=== PATIENT | male | born 1965 | race Caucasian/White ===

== ENCOUNTER 2018-05-16 13:32 | Inpatient (IN) | payer MEDICARE ==
[~2018-05-16] VITALS: Ht 83.8 cm; Wt 80.2 kg
[2018-05-16] VITALS (180 sets, daily range): BP systolic 103; BP diastolic 73; PULSE 72–77; TEMP 97.9–99.3; O2SAT 80–100
[2018-05-16] MEDS ORDERED: LINZESS145CAP PO (13:59)
[2018-05-16] MEDS ORDERED: BACTRIM DS 8001 TAB PO (13:59)
[2018-05-16 14:59] LABS: COLLECTION METHOD CLEAN CATCH
[2018-05-16 15:08] LABS: PH 7 (5-8); SQUAMOUS EPITHELIAL None Seen /hpf; URINE APPEARANCE Turbid; URINE BACTERIA Occasional /hpf; URINE BILIRUBIN Negative (NEGATIVE); URINE BLOOD 2+ (NEGATIVE); URINE GLUCOSE Negative (NEGATIVE); URINE KETONE Negative (NEGATIVE); URINE LEUKOCYTE ESTERASE 2+ (NEGATIVE); URINE NITRATE Negative (NEGATIVE); URINE PROTEIN(semi-quant) 3+ (NEGATIVE); URINE RBC 0-2 /hpf; URINE UROBILINOGEN Negative (NEGATIVE)
[2018-05-16 15:17] LABS: BASO # 0.1 (0.0-0.2); BASO % 0.6 % (0.0-2.0); EOS # 0.3 (0.0-0.7); EOS % 2.9 % (0-4.0); GRAN # 7.7 (1.4-6.5); GRAN % 80.2 % (42.2-75.2); HEMOGLOBIN 16.7 g/dl (13.5-18.0); LYMPH # 0.8 (1.2-3.4); LYMPH % 7.8 % (20.0-51.0); MEAN CELL VOLUME 93 fl (80.0-100.0); MEAN CORPUSCULAR HEMOGLOBIN 27 pg (27.0-31.0); MEAN CORPUSCULAR HGB CONC 29 g/dl (33.0-37.0); MEAN PLATELET VOLUME 10.8 fl (7.4-10.4); MONO # 0.6 (0.1-0.6); MONO % 6.6 % (1.7-9.3); PLATELET COUNT 226 K/mm3 (130-400); RED BLOOD COUNT 6.12 M/mm3 (4.20-5.60); REDCELL DISTRIBUTION WIDTH-CV 19.4 % (11.5-14.5)
[2018-05-16 15:29] LABS: ALBUMIN 3.8 gm/dL (3.5-5.0); BILIRUBIN,TOTAL 0.3 mg/dL (0.0-1.0); CALCIUM 8.4 mg/dL (8.4-10.2); CREATININE, serum 2.06 mg/dL (0.66-1.25); POTASSIUM 4.3 mmol/L (3.4-5.0); TOTAL PROTEIN 8.7 gm/dL (6.4-8.2)
[2018-05-16 17:03] LABS: INR 1.1 (0.8-3.0); PROTHROMBIN TIME 12.9 SECONDS (9.7-12.8)
[2018-05-16 17:07] LABS: TROPONIN-I 0.016 ng/mL (0.000-0.034)
--- NOTE | 2018-05-16 17:40 | NUR ---
Report received by phone from TANNER Morales.
--- NOTE | 2018-05-16 18:50 | NUR ---
Patient arrives to ICU, transported by stretcher and accompanied by TANNER Morales. RT present. Patient is intubated and receiving propofol for sedation. Patient comes with propofol running at 10 mcg/kg/min. Patient transferred from stretcher to bed. Patient is awake and able to answer questions by nodding or shaking head. SHAHRAM Billy, at bedside. Patient wounds on backside reviewed. Will continue to monitor.
--- NOTE | 2018-05-16 19:29 | NUR ---
Bedside report given to TANNER Muñoz.
--- NOTE | 2018-05-16 20:00 | NUR ---
PT ARRIVES TO ICU 184. PT'S FATHER NOT PRESENT TO ANSWER QUESTIONS. 1915: SHIFT CHANGE, PT NOT ABLE TO BE STIMULATED TO OPEN EYES. 1920: ADJUSTED PROP GTT. 1947: TIT PROP GTT. 2010: PT OPENING EYES, CALM, ABLE TO ANSWER YES/NO QUESTIONS, AWARE OF HIS LOCATION AND SITUATION. STILL UNABLE TO OBTAIN ALL MED HX FOR ADMISSION. WHEN ASKED PT OF IN PAIN, PT NODS SIDE TO SIDE, NO.
--- NOTE | 2018-05-16 20:00 | NUR ---
PT ARRIVES TO UNIT INTUBATED. NO KNOWN PAST MEDICAL HX EXCEPT FOR WHAT WAS OBTAINED BY ED PRIOR TO INTUBATION. PT NOT RESPONDING/FOLLOWING COMMANDS AT SHIFT REPORT. PT HAS BILAT LOWER AMPUTEE. AMPUTATION ESSESNTIALLY IS AT HIPS. NO GENETALIA OR NATURAL ORIFICES. PT HAS LEFT LOWER ABD COLOSTOMY AND RIGHT LOWER ABD UROSTOMY. POSTERIOR AND INFERIOR ASPECT OF PT IS RED, AND HAS MULTIPLE OPEN WOUNDS: STAGE 1 AND 2 PRESSURE ULERS AND ABRASIONS.
--- NOTE | 2018-05-16 20:10 | NUR ---
PT OPENING EYES FOLLOWING DECREASED TITRATION OF PROPOFOL. PT FOLLOWING COMMANDS. ABLE TO NOD YES/NO TO QUESTIONS. PT DENIES PAIN. 2015: PROVIDER IN PT RM ASKING YES/NO QUESTIONS
[2018-05-16 21:02] LABS: ARTERIAL BLD GAS O2 SATURATION 98.4 % (92-100); ARTERIAL BLD GAS TCO2 CT 20.4; ARTERIAL BLOOD GAS BASE EXCESS -2.7 (-2-2); ARTERIAL BLOOD GAS HCO3 19.5 meq/L (22-26); ARTERIAL BLOOD GAS PCO2 27.8 mmHg (35-45); ARTERIAL BLOOD GAS PO2 107.9 mmHg (80-100); ARTERIAL BLOOD GAS pH 7.46 (7.35-7.45)
--- NOTE | 2018-05-16 21:09 | NUR ---
PER DR. ARZOLA AT BEDSIDE AND ABG RESULTS RR DECREASED.
[2018-05-17] VITALS (990 sets, daily range): BP systolic 96–108; BP diastolic 51–69; PULSE 66–87; TEMP 99.1–99.8; O2SAT 84–100
--- NOTE | 2018-05-17 | NUR ---
UPON FURTHER ASSESSMENT, WHEN TURNING THE PT, FOUND THE UROSTOMY BAG WAS LEAKING. UROSTOMY BAG WAS REPLACED. ADDITIONALLY, WHEN TURNING THE PT IT APPEARS THE PT HAS A CREVICE RIGHT OF MIDLINE ON THE POSTERIOR WHICH IS APPROX THREE INCHES DEEP WITH WHITE PUSS-LIKE DRAINAGE. WOUNDS WERE PACKED AND DRESSED. PT DENIES PAIN. UROSTOMY STOMA IS BEEF-RED, MOIST, APPEARANCE IS HEALTHY. WHEN CHANGING COLOSTOMY BAG, STOOL IS DRIED TO PART OF STOMA. STOMA CLEANED AND APPEARS RED AND HEALTHY. DO TO LEAKING UROSTOMY, UNKNOWN TRUE URINE OUTPUT FROM [id number].
[2018-05-17 04:55] LABS: ARTERIAL BLD GAS TCO2 CT 21.2; ARTERIAL BLOOD GAS BASE EXCESS -2.9 (-2-2); ARTERIAL BLOOD GAS HCO3 20.2 meq/L (22-26); ARTERIAL BLOOD GAS PCO2 31.1 mmHg (35-45); ARTERIAL BLOOD GAS PO2 108.5 mmHg (80-100); ARTERIAL BLOOD GAS pH 7.43 (7.35-7.45)
--- NOTE | 2018-05-17 05:00 | NUR ---
SEDATION VACATION DURING SMART TRIAL. PT CONTINUED TO BE CALM, ALERT, COOPERATIVE.
--- NOTE | 2018-05-17 05:08 | NUR ---
PT ORAL TEMP 100.2. HOSPITALIST NOTIFIED. NO ADDITIONAL ORDERS AT PRESENT TIME
--- NOTE | 2018-05-17 05:11 | NUR ---
PLACED PT ON CPAP TRIAL VT WERE NOT ABOVE 300. PLACED BACK ON ORGINAL SETTINGS RN IN ROOM AND AWARE.
[2018-05-17 05:50] LABS: HEMATOCRIT 49.2 % (42.0-52.0); HEMOGLOBIN 14.8 g/dl (13.5-18.0); MEAN CELL VOLUME 90 fl (80.0-100.0); MEAN CORPUSCULAR HEMOGLOBIN 27 pg (27.0-31.0); MEAN CORPUSCULAR HGB CONC 30 g/dl (33.0-37.0); PLATELET COUNT 195 K/mm3 (130-400); RED BLOOD COUNT 5.49 M/mm3 (4.20-5.60); REDCELL DISTRIBUTION WIDTH-CV 18.7 % (11.5-14.5)
[2018-05-17 06:01] LABS: CALCIUM 8.5 mg/dL (8.4-10.2); CREATININE, serum 2.29 mg/dL (0.66-1.25); POTASSIUM 3.7 mmol/L (3.4-5.0)
[2018-05-17 06:09] LABS: PHOSPHOROUS 1.3 mg/dL (2.5-4.5)
[2018-05-17 07:20] LABS: BAND 5 % (0-10); LYMPHOCYTE 12 % (20.0-51.0); NEUTROPHILS 81 % (42.0-75.2); PLATELET ESTIMATE NORMAL (NORMAL)
--- NOTE | 2018-05-17 07:45 | NUR ---
Dr. Boykin here, propofol gtt turned off for [facility] care trial.
--- NOTE | 2018-05-17 07:45 | NUR ---
Bedside report received from TANNER Muñoz.
--- NOTE | 2018-05-17 07:49 | NUR ---
DR. ARZOLA AT BEDSIDE AT THIS TIME. DR. ARZOLA REQUESTING DIPRIVAN TO BE STOPPED AND NEW WEANING (SMART CARE) TO BE STARTED. ETCO2 MONITOR STARTED AND PT TO BE PLACED ON AFTER NURSES FINISH TURNING AND LOOKING AT WOUNDS. TANNER URENA AWARE AND AT BEDSIDE.
--- NOTE | 2018-05-17 08:00 | NUR ---
Patient placed on smart care trial.
--- NOTE | 2018-05-17 08:00 | NUR ---
SMART CARE STARTED AT THIS TIME PER DR. ARZOLA AT BEDSIDE. PT NIF MEASURED AT THIS TIME AT A -18, PS SET AT 16. VT AT THIS TIME ARE IN 300'S WITH RR IN MID TO LOW 20'S WILL CONTINUE TO MONITOR.
--- NOTE | 2018-05-17 09:00 | NUR ---
Patient aborted smart care, placed back on CMV, propofol gtt restarted at 15 mcg/kg/min=7.2 ml/hr.
--- NOTE | 2018-05-17 10:45 | NUR ---
Unable to assess at this time due to ventilation. SW will attempt at a later time.
--- NOTE | 2018-05-17 10:50 | NUR ---
Initial visit; Patient aware of Alumni Relations Officer's presence and let her know he would like prayer and wanted Alumni Relations Officer to keep him in her prayers.
--- NOTE | 2018-05-17 11:39 | NUR ---
Dr. Mccormack to assess patient for central line placement.
--- NOTE | 2018-05-17 13:25 | NUR ---
Dr. Mccormack at bedside to place right IJ.
--- NOTE | 2018-05-17 16:48 | NUR ---
Pt's urostomy bag changed, stoma is beefy red in color. dressing now Clean, dry and intact.
--- NOTE | 2018-05-17 19:15 | NUR ---
Bedside report received from TANNER Pettit and TANNER Villafana. All lines and medications reviewed, wounds observed. Transfer of care at this time.
--- NOTE | 2018-05-17 19:22 | NUR ---
Gave bedside report to Wanda HART, all questions asnwered.
--- NOTE | 2018-05-17 19:28 | NUR ---
Pt's urostomy wafer chaged twice during this RN's shift due to leaking, beefy red stoma noted. No skin irritation noted at this time. Urine color is clear and yellow.
--- NOTE | 2018-05-17 20:00 | NUR ---
Assessment complete at this time. Patient is having loud snoring lung sounds like rhonchi especially in the upper lobes bilaterally. Patient is now producing stool; brown, semi-liquid, small amount. Patient's ostomies are both intact, both stomas are beefy red. Patient is producing small amounts of pale yellow urine. No leaks noted at this time. Patient is resting comfortably and alert. Has been trying to write notes to family member at bedside. Patient shakes his head no when asked if having pain. No other needs at this time. Will continue to monitor. Call light within reach.
--- NOTE | 2018-05-17 20:30 | NUR ---
Creatinine clearance 24 hour urine collection started at this time. Urine placed in appropriate container and on ice.
[2018-05-18] VITALS (906 sets, daily range): BP systolic 105–119; BP diastolic 61–76; PULSE 64–89; TEMP 97.9–99; O2SAT 87–100
--- NOTE | 2018-05-18 | NUR ---
Assessment complete at this time. The rhonchi in patient's lungs has decreased and now just sound coarse with sounds louder in the upper lobes and diminished in the lower. Patient continues to make small amounts of stool. Continues to follow commands. No complaints of pain. Urine collection still in progress. No leaks noted around either ostomy site. No current needs at this time. Will continue to monitor. Call light within reach.
--- NOTE | 2018-05-18 04:00 | NUR ---
Assessment complete at this time. Patient is awake and alert, watching tv. Patient's lungs sound better than they did at the beginning of the shift, but are still coarse and diminished in the bases. There is some mucus present in the urine now from the urostomy. No leaks noted in either ostomy. Patient has no complaints of pain. Will continue to monitor. Call light within reach.
[2018-05-18 05:22] LABS: ARTERIAL BLD GAS O2 SATURATION 85.1 % (92-100); ARTERIAL BLD GAS TCO2 CT 23.2; ARTERIAL BLOOD GAS BASE EXCESS -4.4 (-2-2); ARTERIAL BLOOD GAS HCO3 21.8 meq/L (22-26); ARTERIAL BLOOD GAS PCO2 44.7 mmHg (35-45); ARTERIAL BLOOD GAS pH 7.31 (7.35-7.45)
--- NOTE | 2018-05-18 05:28 | NUR ---
ABG DRAWN AND PH 7.31 AND PO2 49 ON 40%. RN NOTIFIED. SMART CARE NOT DONE.
[2018-05-18 05:32] LABS: HEMATOCRIT 43.8 % (42.0-52.0); HEMOGLOBIN 12.9 g/dl (13.5-18.0); MEAN CELL VOLUME 91 fl (80.0-100.0); MEAN CORPUSCULAR HEMOGLOBIN 27 pg (27.0-31.0); MEAN CORPUSCULAR HGB CONC 30 g/dl (33.0-37.0); MEAN PLATELET VOLUME 10.9 fl (7.4-10.4); PLATELET COUNT 154 K/mm3 (130-400); RED BLOOD COUNT 4.79 M/mm3 (4.20-5.60); REDCELL DISTRIBUTION WIDTH-CV 19.1 % (11.5-14.5)
[2018-05-18 05:34] LABS: ARTERIAL BLOOD GAS PO2 48.8 mmHg (80-100)
[2018-05-18 05:45] LABS: CALCIUM 8.3 mg/dL (8.4-10.2); CREATININE, serum 2.31 mg/dL (0.66-1.25); MAGNESIUM 1.9 mg/dL (1.6-2.3); PHOSPHOROUS 2.1 mg/dL (2.5-4.5); POTASSIUM 3.4 mmol/L (3.4-5.0)
--- NOTE | 2018-05-18 05:45 | NUR ---
Smart care will not be done this morning. Patient's ABG's look worse than the previous draw. RT to notify [facility]. Patient was taken off of sedation completely in preparation and sedation vacation performed. Patient restarted on propofol 15mcg and fentanyl 25mcg for comfort. No further needs at this time. Will continue to monitor. Call light within reach.
[2018-05-18 06:21] LABS: BAND 4 % (0-10); BASOPHIL 1 % (0-2); EOSINOPHIL 2 % (0-4); HYPOCHROMIA 3+; LYMPHOCYTE 14 % (20.0-51.0); NEUTROPHILS 73 % (42.0-75.2); PLATELET ESTIMATE NORMAL (NORMAL)
[2018-05-18 06:22] LABS: ANISOCYTOSIS 2+
--- NOTE | 2018-05-18 07:00 | NUR ---
Received bedside report from TANNER Muñoz.
--- NOTE | 2018-05-18 07:08 | NUR ---
Bedside report given to TANNER Pettit and TANNER Goetz. All lines and medications reviewed. Transfer of care at this time.
--- NOTE | 2018-05-18 09:20 | NUR ---
DR. ARZOLA AT BEDSIDE FOR ROUNDS.
[2018-05-18 09:32] LABS: ARTERIAL BLD GAS O2 SATURATION 98.4 % (92-100); ARTERIAL BLD GAS TCO2 CT 19.7; ARTERIAL BLOOD GAS BASE EXCESS -5.1 (-2-2); ARTERIAL BLOOD GAS HCO3 18.7 meq/L (22-26); ARTERIAL BLOOD GAS PCO2 31.5 mmHg (35-45); ARTERIAL BLOOD GAS pH 7.39 (7.35-7.45)
--- NOTE | 2018-05-18 10:02 | NUR ---
Patient was with nurse.
--- NOTE | 2018-05-18 10:20 | NUR ---
DR. GARZA AT BEDSIDE FOR ROUNDS.
--- NOTE | 2018-05-18 10:30 | NUR ---
PT'S TUBE FEEDING INCREASED TO 32 ML/HR ORDERED. PT TOLERATING FEEDING WELL.
--- NOTE | 2018-05-18 13:29 | NUR ---
CALLED DR. PEARL TO FOLLOW-UP CONSULT. PROVIDER AWARE AND VERBALIZED HE'LL SEE PT LATER TODAY OR FIRST THING IN THE MORNING. ALSO, DR. ARMSTRONG CALLED WELL FOR FOLLOW UP REGARDING LABS AND VERBALIZED HE'LL SEE PT LATER TODAY.
--- NOTE | 2018-05-18 14:41 | NUR ---
PT DENIES ANY PAIN AND FEELS COMFORTABLE.
--- NOTE | 2018-05-18 17:00 | NUR ---
PT NOT ON SEDATION AT THIS TIME.
--- NOTE | 2018-05-18 18:10 | NUR ---
DR. ARMSTRONG AT BEDSIDE FOR ROUNDS.
--- NOTE | 2018-05-18 19:00 | NUR ---
REPORT GIVEN TO JANETTE HART. MEDICATIONS AND LINES REVIEWED AT BEDSIDE.
[2018-05-18 19:29] LABS: ARTERIAL BLD GAS O2 SATURATION 98.6 % (92-100); ARTERIAL BLD GAS TCO2 CT 21.1; ARTERIAL BLOOD GAS BASE EXCESS -4.9 (-2-2); ARTERIAL BLOOD GAS PCO2 36.8 mmHg (35-45); ARTERIAL BLOOD GAS pH 7.35 (7.35-7.45)
[2018-05-18 19:30] LABS: ARTERIAL BLOOD GAS PO2 141.9 mmHg (80-100)
--- NOTE | 2018-05-18 19:45 | NUR ---
Patient assessment completed and charted at this time, please see documentation for details. Patient alert, tolerating ventilator well at this time. All questions and concerns addressed, will continue to monitor and assess.
--- NOTE | 2018-05-18 19:54 | NUR ---
SETTINGS CHANGED PER DR. JEREZ VERBAL ORDERS. RATE CHANGED TO 20 AND FIO2 TO 35%. RN NOTIFIED.
--- NOTE | 2018-05-18 23:40 | NUR ---
Patient assessment completed and charted at this time, please see documentation for details. Patient remains alert, no sedation and tolerating ventilator well, following commands. No new issues to report at this time.
[2018-05-19] VITALS (985 sets, daily range): BP systolic 105–130; BP diastolic 67–89; PULSE 71–103; TEMP 98.3–99.5; O2SAT 72–100
--- NOTE | 2018-05-19 04:00 | NUR ---
Patient assessment completed, please see documentation for details. Patient urostomy continues to leak. Wafer changed and refinfored at this time.
--- NOTE | 2018-05-19 05:00 | NUR ---
Patient currently on no sedation for sedation vacation.
[2018-05-19 05:33] LABS: ARTERIAL BLD GAS O2 SATURATION 76.9 % (92-100); ARTERIAL BLD GAS TCO2 CT 21.5; ARTERIAL BLOOD GAS HCO3 20.3 meq/L (22-26); ARTERIAL BLOOD GAS PCO2 38.9 mmHg (35-45); ARTERIAL BLOOD GAS PO2 38.7 mmHg (80-100); ARTERIAL BLOOD GAS pH 7.34 (7.35-7.45)
[2018-05-19 05:36] LABS: BASO % 0.3 % (0.0-2.0); EOS # 0.3 (0.0-0.7); EOS % 3.9 % (0-4.0); GRAN # 5.7 (1.4-6.5); GRAN % 77.8 % (42.2-75.2); HEMATOCRIT 44.6 % (42.0-52.0); HEMOGLOBIN 13.2 g/dl (13.5-18.0); LYMPH # 0.6 (1.2-3.4); LYMPH % 7.6 % (20.0-51.0); MEAN CELL VOLUME 91 fl (80.0-100.0); MEAN CORPUSCULAR HEMOGLOBIN 27 pg (27.0-31.0); MEAN CORPUSCULAR HGB CONC 30 g/dl (33.0-37.0); MEAN PLATELET VOLUME 10.7 fl (7.4-10.4); MONO # 0.7 (0.1-0.6); PLATELET COUNT 146 K/mm3 (130-400); RED BLOOD COUNT 4.91 M/mm3 (4.20-5.60); REDCELL DISTRIBUTION WIDTH-CV 19.5 % (11.5-14.5)
[2018-05-19 05:52] LABS: CALCIUM 8.7 mg/dL (8.4-10.2); MAGNESIUM 1.8 mg/dL (1.6-2.3); PHOSPHOROUS 2.2 mg/dL (2.5-4.5); POTASSIUM 3.5 mmol/L (3.4-5.0)
--- NOTE | 2018-05-19 07:10 | NUR ---
Patient report given to TANNER Del Toro at this time.
--- NOTE | 2018-05-19 07:30 | NUR ---
Report received and care resumed. Pt resting on CPAP at this time. Denies any pain. Will continue to follow.
--- NOTE | 2018-05-19 07:55 | NUR ---
PT PLACED ON PS 10 PEEP 5 FOR TRIAL. SMART CARE NOT ON. DR. ARZOLA AWARE. PT TOLERATING WELL. PT DOES MUCH BETTER ONCE REPOSITIONED AND SITTING UP. PT WHEN ASKED ALSO SLEEPS WITH HEAD ELEVATED AT HOME WELL. VT'S 1/3-1/2 MORE THAN WHEN LAYING MORE FLAT. WILL CONTINUE TO MONITOR. PT COMMUNICATES HE IS COMFORTABLE AND IN NO DISTRESS. ALARMS SET AND FUNCTIONING. RN AWARE OF CHANGES.
--- NOTE | 2018-05-19 09:10 | NUR ---
Dr Pedraza in to see pt.
--- NOTE | 2018-05-19 10:16 | NUR ---
Dr Boykin in to see at this time.
--- NOTE | 2018-05-19 10:30 | NUR ---
DR. ARZOLA AT BEDSIDE SPEAKING WITH PT AND PT'S FATHER. PT HAS BEEN DOING WELL ON PS 10 PEEP 5 WITH RR IN LOW TO MID 20'S VT'S MID 300-MID 400'S. PT ALERT/AWAKE. DECISION TO EXTUBATE MADE AT THIS TIME PER DR. ARZOLA. PT SUCTIONED VIA OETT/ORALLY PRE EXTUBATION. PT EXTUBATED WITHOUT INCIDENT. PT PLACED ON 5L OM. PT COUGHED TWICE WITH A SMALL AMOUT OF WHITE SECRETIONS BOTH TIMES. NO STRIDOR AUSCULATED AT THIS TIME. BBSH CLEAR. NO DISTRESS NOTED. VITAL SIGNS STABLE. WILL CONTINUE TO MONITOR. ABG PENDING FOR LATER IN AFTERNOON.
--- NOTE | 2018-05-19 10:38 | NUR ---
Verbal order received from Dr Boykin to extubate pt. RT at bedside. PT extubated and restraints removed at 1030. Pt currently on 4L/OM. Denies any concerns. Dad remains at bedside. Will continue to follow.
--- NOTE | 2018-05-19 11:16 | NUR ---
Dr Blake in to see pt at this time.
--- NOTE | 2018-05-19 11:27 | NUR ---
Dr Miles by for urostomy help. No further ideas at this time. Will not place official consult.
--- NOTE | 2018-05-19 13:34 | NUR ---
Patient lives at home with his father (Devonte) in [place], [place] and plans to return home upon discharge if his strength allows. Patient has been bed bound for several months in order for his wounds to heal but when not bed bound he was using a wheelchair for mobility assistance. Patient's primary care physician is Dr. Bashir Murillo and also sees Dr. Nikolai Blake as needed, and he does not have advance directives completed at this time. No further needs and psychologist social will follow as needed.
--- NOTE | 2018-05-19 14:55 | NUR ---
New ostomy placed with recommendations per Dr Miles. Pt tolerated well. Dressing to sacral area also changed and packed. Pt denies any pain associated with dressing change. No concerns at this time, will continue to follow.
[2018-05-19 16:47] LABS: ARTERIAL BLD GAS O2 SATURATION 95.2 % (92-100); ARTERIAL BLD GAS TCO2 CT 19.9; ARTERIAL BLOOD GAS HCO3 18.6 meq/L (22-26); ARTERIAL BLOOD GAS PCO2 42.1 mmHg (35-45); ARTERIAL BLOOD GAS PO2 82.8 mmHg (80-100); ARTERIAL BLOOD GAS pH 7.26 (7.35-7.45)
--- NOTE | 2018-05-19 19:12 | NUR ---
Report given to Jose HART and care transfered.
--- NOTE | 2018-05-19 22:34 | NUR ---
UNABLE TO OBTAIN ABG AT NIGHT TO ASSESS PT ON BIPAP. DR. ARZOLA WAS CALLED, PER DR. ARZOLA HE SAID TO LEAVE PT ON BIPAP ALL NIGHT AND HAVE DAY SHIFT TRY TO OBTAIN ABG IN MORNING TO ASSESS PTS STATUS. WILL CONTINUE TO MONITOR AND ASSESS THE PT NEEDED.
[2018-05-20] VITALS (728 sets, daily range): BP systolic 96–122; BP diastolic 53–70; PULSE 89–106; TEMP 98.3–99.8; O2SAT 55–100
[2018-05-20 05:43] LABS: ALBUMIN 3.1 gm/dL (3.5-5.0); BILIRUBIN,TOTAL 0.4 mg/dL (0.0-1.0); CALCIUM 8.6 mg/dL (8.4-10.2); CREATININE, serum 1.85 mg/dL (0.66-1.25); MAGNESIUM 2.1 mg/dL (1.6-2.3); PHOSPHOROUS 4.2 mg/dL (2.5-4.5); POTASSIUM 4.1 mmol/L (3.4-5.0)
[2018-05-20 05:50] LABS: PRE ALBUMIN 13.8 mg/dL (17.6-36.0)
[2018-05-20 06:14] LABS: BASO % 0.3 % (0.0-2.0); EOS # 0.3 (0.0-0.7); EOS % 4.4 % (0-4.0); GRAN % 73.7 % (42.2-75.2); HEMATOCRIT 45.4 % (42.0-52.0); HEMOGLOBIN 13.1 g/dl (13.5-18.0); LYMPH # 0.7 (1.2-3.4); LYMPH % 10.8 % (20.0-51.0); MEAN CORPUSCULAR HEMOGLOBIN 28 pg (27.0-31.0); MEAN CORPUSCULAR HGB CONC 29 g/dl (33.0-37.0); MEAN PLATELET VOLUME 11.5 fl (7.4-10.4); MONO # 0.6 (0.1-0.6); MONO % 9.3 % (1.7-9.3); PLATELET COUNT 155 K/mm3 (130-400); RED BLOOD COUNT 4.75 M/mm3 (4.20-5.60); REDCELL DISTRIBUTION WIDTH-CV 20.1 % (11.5-14.5)
[2018-05-20 06:23] LABS: MEAN CELL VOLUME 96 fl (80.0-100.0)
[2018-05-20 06:37] LABS: ARTERIAL BLD GAS O2 SATURATION 96.3 % (92-100); ARTERIAL BLD GAS TCO2 CT 22.6; ARTERIAL BLOOD GAS BASE EXCESS -6.9 (-2-2); ARTERIAL BLOOD GAS PCO2 51.6 mmHg (35-45); ARTERIAL BLOOD GAS PO2 94.4 mmHg (80-100); ARTERIAL BLOOD GAS pH 7.23 (7.35-7.45)
--- NOTE | 2018-05-20 07:20 | NUR ---
Bedside report received from TANNER Garcia.
--- NOTE | 2018-05-20 08:00 | NUR ---
Assessment completed. Pt A/Ox3. Denies any pain at this time. VSS. Call light in reach.
--- NOTE | 2018-05-20 08:30 | NUR ---
Physical therapy at bedside working with pt.
--- NOTE | 2018-05-20 11:45 | NUR ---
Notified Antonieta, from social work, of [facility] consult by Dr. Boykin.
--- NOTE | 2018-05-20 12:00 | NUR ---
Reassessment completed. No changes from baseline assessment. VSS. Pt denies any pain at this time. Tolerates repositioning. Ileostomy continues to leak. Linens changed. Ileostomy bag changed. Stoma red. Pt tolerated well.
--- NOTE | 2018-05-20 13:30 | NUR ---
Jose, commercial title examiner at bedside. Changed pt's wound dressings on coccyx and left hip.
[2018-05-20 13:55] LABS: URINE PROTEIN:CREAT RATIO 2.65 (0.00-0.14)
--- NOTE | 2018-05-20 15:16 | NUR ---
Pt placed back on bipap mask so he can sleep. VSS. Call light in reach.
--- NOTE | 2018-05-20 15:30 | NUR ---
Antonieta, social work, at bedside. Will call pt's Dad to update on [facility] consult.
--- NOTE | 2018-05-20 16:11 | NUR ---
flume worker contacted patient's father, Devonte [phone] and discussed [facility]way acute hospital. Father states patient was in [facility] in [place] about one year ago. Worker gave a referral to Bala at [facility] and will await screen. Father unsure of [place] or [place] location.
--- NOTE | 2018-05-20 17:19 | NUR ---
Gerald, chucking and boring machine operator, at bedside.
--- NOTE | 2018-05-20 19:18 | NUR ---
Report given to TANNER Garcia.
--- NOTE | 2018-05-20 20:00 | NUR ---
Assessment completed and charted at this time, please see documentation for details. Patient resting in bed, awake, on nasal cannula at this time. No new issues to report.
[2018-05-21] VITALS (440 sets, daily range): BP systolic 119–121; BP diastolic 63–81; PULSE 98–105; TEMP 97.9–100.2; O2SAT 74–100
[2018-05-21 05:58] LABS: HEMATOCRIT 46.2 % (42.0-52.0); HEMOGLOBIN 13.2 g/dl (13.5-18.0); MEAN CELL VOLUME 95 fl (80.0-100.0); MEAN CORPUSCULAR HEMOGLOBIN 27 pg (27.0-31.0); MEAN CORPUSCULAR HGB CONC 29 g/dl (33.0-37.0); MEAN PLATELET VOLUME 10.8 fl (7.4-10.4); PLATELET COUNT 154 K/mm3 (130-400); RED BLOOD COUNT 4.88 M/mm3 (4.20-5.60)
[2018-05-21 06:14] LABS: CALCIUM 8.4 mg/dL (8.4-10.2); CREATININE, serum 1.85 mg/dL (0.66-1.25); POTASSIUM 4.1 mmol/L (3.4-5.0)
[2018-05-21 07:15] LABS: BAND 1 % (0-10); EOSINOPHIL 3 % (0-4); LYMPHOCYTE 2 % (20.0-51.0); NEUTROPHILS 91 % (42.0-75.2)
[2018-05-21 07:16] LABS: PLATELET ESTIMATE NORMAL (NORMAL); POLYCHROMASIA 1+
[2018-05-21 07:17] LABS: HYPOCHROMIA 1+
--- NOTE | 2018-05-21 07:25 | NUR ---
Bedside report recieved from TANNER Garcia. Patient on 2LNC which is replaced with 3LOM secondary to O2 saturations <92%. Patient is awake and participates in report. RIJ CDI with D5W with 10meq of K infusing at 20ml/hr. Care assumed at this time.
--- NOTE | 2018-05-21 07:35 | NUR ---
Patient noted to have decreased O2 saturations with correlating waveform on monitor. Patient SpO2 probe replaced and oxymax replaced with BiPap at 35% FiO2. Saturations increase to >90% with this change. Patient remains AxOx3 and denies dyspnea. Care ongoing.
--- NOTE | 2018-05-21 08:16 | NUR ---
AM abg as resulted. Dr. Boykin present and aware of results.
[2018-05-21 08:34] LABS: ARTERIAL BLD GAS O2 SATURATION 96.4 % (92-100); ARTERIAL BLD GAS TCO2 CT 24.5; ARTERIAL BLOOD GAS BASE EXCESS -6.2 (-2-2); ARTERIAL BLOOD GAS HCO3 22.7 meq/L (22-26); ARTERIAL BLOOD GAS PCO2 59.5 mmHg (35-45); ARTERIAL BLOOD GAS PO2 88.2 mmHg (80-100)
--- NOTE | 2018-05-21 09:25 | NUR ---
Dr. Boykin at bedside for patient rounding and assessment. Bedside US completed without indication per MD of pleural effusion. Provider speaks at length with patient with this RN present regarding deterioration of status. Prognosis is thoroughly described both with and without re-intubation. Patient verbalizes understanding. Patient states he does not wish to be back on the ventilator or have chest compressions if necessary. He also however, states "I think I'll be ok. I'll make it through this." MD stresses likely mortality of illness if not aggresively treated. Patient is encouraged to call father and agrees. Father is contacted and speaks with this RN, Dr. Boykin and patient. Father states he will be in shortly.
--- NOTE | 2018-05-21 09:27 | NUR ---
Report provided to TANNER Villafana.
--- NOTE | 2018-05-21 09:27 | NUR ---
Report received from TANNER Bautista care assumed at this time.
--- NOTE | 2018-05-21 12:20 | NUR ---
Report called to Estephanie at [facility].
[2018-05-21 13:22] LABS: ARTERIAL BLD GAS TCO2 CT 23.7; ARTERIAL BLOOD GAS BASE EXCESS -6.7 (-2-2); ARTERIAL BLOOD GAS PCO2 57.1 mmHg (35-45); ARTERIAL BLOOD GAS PO2 98.6 mmHg (80-100)
--- NOTE | 2018-05-21 13:24 | NUR ---
Plan Update. Patient has been accepted to [facility] in [facility] Director Bala informed SW to keep him updated and obtain transport to [facility], [place] [address]. RM [address] Accepting PA Dr. Bernabe Mckenna at [phone], . SW will fax updates and discharge at time of release to transfer.
--- NOTE | 2018-05-21 13:50 | NUR ---
Reconfirmed with TANNER Hummel at [facility] to assure patient has been accepted at this time.
--- NOTE | 2018-05-21 14:13 | NUR ---
Update given to nahid Whitney father.
--- NOTE | 2018-05-21 14:56 | NUR ---
[facility] to [facility] via [facility]. Bala from [facility] updated with ETA.
--- NOTE | 2018-05-21 14:56 | NUR ---
Cell phone sent with Devonte, patient father.
== END 2018-05-21 15:12 | DRG 208 ==
LOC: COL.ER 13:32 → ICU 18:11
PROVIDERS: Anesthesiology Critical Care Medicine; Emergency Medicine; Family Medicine; Internal Medicine; Internal Medicine Pulmonary Disease; Physician Assistant
PROC: 5A1945Z Respiratory Ventilation, 24-96 Consecutive Hours (ICD-10-PCS; principal; 2018-05-16)
DX: J96.02 Acute respiratory failure with hypercapnia (principal); J18.9 Pneumonia, unspecified organism; T83.511A Infection and inflammatory reaction due to indwelling urethral catheter, initial encounter; J90 Pleural effusion, not elsewhere classified; N18.4 Chronic kidney disease, stage 4 (severe); N25.81 Secondary hyperparathyroidism of renal origin; E87.0 Hyperosmolality and hypernatremia; Z66 Do not resuscitate; I12.9 Hypertensive chronic kidney disease with stage 1 through stage 4 chronic kidney disease, or unspecified chronic kidney disease; Z89.612 Acquired absence of left leg above knee; Z89.611 Acquired absence of right leg above knee; Q05.9 Spina bifida, unspecified; L89.152 Pressure ulcer of sacral region, stage 2; D63.1 Anemia in chronic kidney disease; Z93.3 Colostomy status; N20.0 Calculus of kidney; Z93.6 Other artificial openings of urinary tract status; B95.2 Enterococcus as the cause of diseases classified elsewhere
CPT/HCPCS: 99233-AI; 99239; A4216; J0330; J0636; J0692; J1170; J1644; J1956; J2185; J2250; J2405; J2704; J2765; J3010; J3475; J3480; J7030; J7050; J7070

== ENCOUNTER → 2018-07-29 | Outpatient (CLI) | payer MEDICARE, MEDICAID ==
[~2018-07-29] MED LIST: BACTRIM DS 8001 TAB PO; LINZESS145CAP PO
== END ==
LOC: ZCOL.LAB 15:34
DX: L89.144 Pressure ulcer of left lower back, stage 4 (principal)

== ENCOUNTER 2019-01-15 12:27 | Emergency (ER) | payer MEDICARE, MEDICAID ==
[~2019-01-15] VITALS: Ht 165.1 cm; Wt 89.2 kg
[~2019-01-15 12:27] MED LIST changes: +MAXIPIME1 GM IV; +MIRALAX PA17 GM/Dose PO; +NORVASC 5MG5 MG/TAB PO; +PEPCID 20MG TAB20 MG PO; +VANCOCIN HCL500 MG IV; +VANCOMYCIN HYD750 MG IV
[2019-01-15] MEDS ORDERED: ALBUTEROL0.83 MG/ML IH (12:59)
[2019-01-15] MEDS ORDERED: BREO IH (12:59)
[2019-01-15 13:05] LABS: HEMATOCRIT 47.6 % (42.0-52.0); HEMOGLOBIN 13.2 g/dl (13.5-18.0); MEAN CELL VOLUME 92 fl (80.0-100.0); MEAN CORPUSCULAR HEMOGLOBIN 26 pg (27.0-31.0); MEAN CORPUSCULAR HGB CONC 28 g/dl (33.0-37.0); MEAN PLATELET VOLUME 11.2 fl (7.4-10.4); PLATELET COUNT 182 K/mm3 (130-400); RED BLOOD COUNT 5.15 M/mm3 (4.20-5.60); REDCELL DISTRIBUTION WIDTH-CV 19.2 % (11.5-14.5)
[2019-01-15 13:18] LABS: ALANINE AMINOTRANSFERASE 15 U/L (21-72); ALBUMIN 4.2 gm/dL (3.5-5.0); ALKALINE PHOSPHATASE 136 U/L (50-136); ANION GAP 9 mmol/L (7-16); AST,SGOT 31 U/L (15-37); BILIRUBIN,TOTAL 0.4 mg/dL (0.0-1.0); BLOOD UREA NITROGEN 26 mg/dL (9-20); CALCIUM 8.8 mg/dL (8.4-10.2); CARBON DIOXIDE 30 mmol/L (22-30); CHLORIDE 102 mmol/L (98-107); CREATININE, serum 1.86 (0.66-1.25); GLUCOSE 96 mg/dL (74-106); POTASSIUM 3.6 mmol/L (3.4-5.0); SODIUM 141 mmol/L (137-145)
[2019-01-15 13:31] LABS: TROPONIN-I < 0.012 ng/mL (0.000-0.035)
[2019-01-15 13:42] LABS: BAND 6 % (0-10); EOSINOPHIL 3 % (0-4); LYMPHOCYTE 13 % (20.0-51.0); METAMYELOCYTE 2 % (0-0); NEUTROPHILS 71 % (42.0-75.2)
[2019-01-15 13:43] LABS: PLATELET ESTIMATE NORMAL (NORMAL)
--- NOTE | 2019-01-15 14:04 | NUR ---
PRODUCTION GRIP student responded to an ED social worker masters referral. The patient was to fill out a DPOA for healthcare. PRODUCTION GRIP student provided the form. The patient's nurse, Lily and PRODUCTION GRIP student witnessed. A copy was placed in the ED chart; the original and copies were provided to the patient. The patient designates his father, Apollo Chaidez phone # . There were no additional questions or concerns.
[2019-01-15 14:49] VITALS: TEMP 97.7
[2019-01-15 14:49] LABS: COLLECTION METHOD CATHETER
[2019-01-15 15:05] LABS: HYALINE CAST >12 /lpf; MUCOUS Present /lpf; PH 7 (5-8); SQUAMOUS EPITHELIAL 0-2 /hpf; URINE APPEARANCE Cloudy; URINE BACTERIA Rare /hpf; URINE BILIRUBIN Negative (NEGATIVE); URINE BLOOD 2+ (NEGATIVE); URINE COLOR Yellow; URINE GLUCOSE Negative (NEGATIVE); URINE KETONE Negative (NEGATIVE); URINE LEUKOCYTE ESTERASE 3+ (NEGATIVE); URINE NITRATE Negative (NEGATIVE); URINE PROTEIN(semi-quant) 2+ (NEGATIVE); URINE RBC 20-50 /hpf; URINE UROBILINOGEN Negative (NEGATIVE)
[2019-01-15 18:05] VITALS: BP 127/81; PULSE 97
== END 2019-01-15 16:40 | disposition short-term general hospital (02) ==
LOC: COL.ER 12:27
PROVIDERS: Emergency Medicine
DX: J18.1 Lobar pneumonia, unspecified organism (principal); R60.9 Edema, unspecified; I10 Essential (primary) hypertension; J45.909 Unspecified asthma, uncomplicated; Z79.51 Long term (current) use of inhaled steroids; Z93.3 Colostomy status; Z93.6 Other artificial openings of urinary tract status
CPT/HCPCS: J1956

== ENCOUNTER 2019-09-10 10:23 | Inpatient (IN) | payer MEDICARE, MEDICAID ==
[~2019-09-10] VITALS: Ht 121.9 cm; Wt 89.0 kg
[~2019-09-10 10:23] MED LIST changes: +ALBUTEROL0.83 MG/ML IH; +BREO IH
[2019-09-10 13:44] VITALS: BP 137/77; PULSE 102; TEMP 97.9
[2019-09-10 16:27] LABS: HEMATOCRIT 43.4 % (42.0-52.0); HEMOGLOBIN 12.2 g/dl (13.5-18.0); MEAN CELL VOLUME 96 fl (80.0-100.0); MEAN CORPUSCULAR HEMOGLOBIN 27 pg (27.0-31.0); MEAN CORPUSCULAR HGB CONC 28 g/dl (33.0-37.0); MEAN PLATELET VOLUME 10.2 fl (7.4-10.4); PLATELET COUNT 191 K/mm3 (130-400); REDCELL DISTRIBUTION WIDTH-CV 19.5 % (11.5-14.5)
[2019-09-10 16:37] LABS: ALBUMIN 3.7 gm/dL (3.5-5.0); BILIRUBIN,TOTAL 0.2 mg/dL (0.0-1.0); CALCIUM 8.8 mg/dL (8.4-10.2); CREATININE, serum 1.98 (0.66-1.25); POTASSIUM 4.1 mmol/L (3.4-5.0); TOTAL PROTEIN 8.3 gm/dL (6.4-8.2)
[2019-09-10] MEDS ORDERED: ZYRTEC 10MG10 MG PO (17:14)
[2019-09-10] MEDS ORDERED: KLOR-CON M2020 MEQ PO (17:15)
[2019-09-10] MEDS ORDERED: LASIX 40MG TABL40 MG PO (17:16)
[2019-09-10] MEDS ORDERED: PHARMASSURE ZIN50 MG PO (17:17)
[2019-09-10] MEDS ORDERED: NATURAL VITAM1000 MG PO (17:18)
[2019-09-10] MEDS ORDERED: VITAMIN D31000 I1 PO (17:20)
[2019-09-10] MEDS ORDERED: DULCOLAX STOOL100 MG PO (17:21)
[2019-09-10] MEDS ORDERED: MULTI VITAMINS1 TAB PO (17:22)
[2019-09-10] MEDS ORDERED: TYLENOL 500MG500 MG PO (17:23)
[2019-09-10 17:30] VITALS: BP 127/95; PULSE 104; TEMP 97.8
[2019-09-10 17:38] LABS: ANISOCYTOSIS 3+; BAND 6 % (0-10); EOSINOPHIL 3 % (0-4); LYMPHOCYTE 6 % (20.0-51.0); MYELOCYTE 2 % (0-0); NEUTROPHILS 79 % (42.0-75.2)
[2019-09-10 17:39] LABS: HYPOCHROMIA 2+; PLATELET ESTIMATE NORMAL (NORMAL); STOMATOCYTE 1+
[2019-09-10 19:44] VITALS: BP 137/75; PULSE 101; TEMP 98.5
[2019-09-11 00:48] VITALS: BP 151/81; PULSE 99; TEMP 98.9
--- NOTE | 2019-09-11 02:32 | NUR ---
Patient required a complete bed change this shift. Colostomy and ileostomy appliances changed. Patient had own supplies at bedside. Tolerated this well. One dressing to coccyx required to be changed d/t it being soiled. Multiple wounds noted to coccyx. Patient has no lower extremities. Wears BiPap at night. Denies pain. IV started by TANNER Howe. to right AC. IVF infusing. Will conitnue to monitor.
[2019-09-11 03:32] VITALS: BP 147/70; PULSE 91; TEMP 98
[2019-09-11 07:45] VITALS: BP 163/74; PULSE 98; TEMP 97.7
--- NOTE | 2019-09-11 08:14 | NUR ---
Pt awake and alert this morning, no C/O pain at this time, shift assessments complete, left Pt call light in reach, bed in lowest position.
[2019-09-11 08:48] LABS: BASO % 0.4 % (0.0-2.0); EOS # 0.3 (0.0-0.7); EOS % 4.5 % (0-4.0); GRAN # 5.4 (1.4-6.5); GRAN % 73.6 % (42.2-75.2); HEMATOCRIT 39.7 % (42.0-52.0); LYMPH # 0.8 (1.2-3.4); LYMPH % 11.2 % (20.0-51.0); MEAN CELL VOLUME 98 fl (80.0-100.0); MEAN CORPUSCULAR HEMOGLOBIN 27 pg (27.0-31.0); MEAN CORPUSCULAR HGB CONC 28 g/dl (33.0-37.0); MEAN PLATELET VOLUME 10.3 fl (7.4-10.4); MONO # 0.6 (0.1-0.6); PLATELET COUNT 170 K/mm3 (130-400); RED BLOOD COUNT 4.05 M/mm3 (4.20-5.60); REDCELL DISTRIBUTION WIDTH-CV 19.1 % (11.5-14.5)
[2019-09-11 09:03] LABS: CALCIUM 8.5 mg/dL (8.4-10.2); CREATININE, serum 2.12 (0.66-1.25); POTASSIUM 4.1 mmol/L (3.4-5.0)
--- NOTE | 2019-09-11 10:00 | NUR ---
BRITNEY met with the patient to complete initial intake. The patient lives in [place] with his dad. The patient is wheelchair bound and receives assistance from his dad to transfer to the bed and to his chair. The patient states he would like some at home assistance but cannot afford private pay. BRITNEY informed the patient that she would contact the [facility] Agency on Aging to inquire about services the patient could obtain. The patient was agreeable. The patient has [facility] twice a week for wound care. The patient's PCP is Dr. Murillo and patient receives medications from [facility] in [place]. His dad picks up his medications. The patient has advanced directives in the EMR and designate his father Devonte Chaidez. The patient plans to return home at discharge. BRITNEY will set up transportation with [employer]. Will continue to follow.
--- NOTE | 2019-09-11 10:49 | NUR ---
SW contacted [facility] Agency on Aging, left message. Will continue to monitor.
[2019-09-11 12:38] VITALS: BP 120/68; PULSE 99; TEMP 97.6
--- NOTE | 2019-09-11 12:51 | NUR ---
First visit from the sap trainer. No needs right now.
--- NOTE | 2019-09-11 15:19 | NUR ---
Becky from [facility] Agency on Aging contacted BRITNEY. BRITNEY and Becky discussed the patient and since he is deemed disabled by social security he would qualify for a physically disabled waiver. Becky reports she will contact the patient to initiate the process. BRITNEY informed the patient. BRITNEY faxed updates to [facility] services. Will continue to monitor.
[2019-09-11 16:55] VITALS: BP 124/75; PULSE 95; TEMP 98.8
[2019-09-11 19:54] VITALS: BP 129/61; PULSE 101; TEMP 99.4
--- NOTE | 2019-09-11 19:56 | NUR ---
Pt resting in the room today, no C/O poain today. VS have remained stable.
--- NOTE | 2019-09-11 20:45 | NUR ---
Initial shift assessment done- VSS, alert/oriented/pleasant, denies pain at this time, o2 at 2L/nc, colostomy bag intact, urostomy to drainage bag,, initiated dressing changes at this time-- pt has multiple ulcer/wounds to perineum-draining clear/white yellow drainage-- all wounds dressed with NS wet to dry dressing- abd to cover w/paper tape, IV fluids of NS at 100cc/hr, on po doxycycline-- pt is amputee from pelvis down--able to move self in bed
[2019-09-11 22:33] LABS: COLLECTION METHOD CATHETER
[2019-09-11 22:50] LABS: AMORPHOUS CRYSTAL Present /uL; MUCOUS Present /lpf; PH 8 (5-8); SQUAMOUS EPITHELIAL None Seen /hpf; URINE APPEARANCE Turbid; URINE BACTERIA Many /hpf; URINE BILIRUBIN Negative (NEGATIVE); URINE BLOOD 2+ (NEGATIVE); URINE COLOR Yellow; URINE GLUCOSE Negative (NEGATIVE); URINE KETONE Negative (NEGATIVE); URINE LEUKOCYTE ESTERASE 2+ (NEGATIVE); URINE NITRATE Negative (NEGATIVE); URINE PROTEIN(semi-quant) 2+ (NEGATIVE); URINE UROBILINOGEN Negative (NEGATIVE)
[2019-09-12 00:10] VITALS: BP 144/83; PULSE 97; TEMP 98.8
--- NOTE | 2019-09-12 04:00 | NUR ---
Has been sleeping well with Bipap all night-- Wet to dry dressings to perineal ulcers changed at this time- lots of serous drainage noted- foul smelling. Pt denies pain
[2019-09-12 04:27] VITALS: BP 142/75; PULSE 93; TEMP 98.8
[2019-09-12 07:34] VITALS: BP 124/64; PULSE 103; TEMP 99
[2019-09-12 09:18] LABS: HEMATOCRIT 37.1 % (42.0-52.0); HEMOGLOBIN 10.6 g/dl (13.5-18.0); MEAN CELL VOLUME 97 fl (80.0-100.0); MEAN CORPUSCULAR HEMOGLOBIN 28 pg (27.0-31.0); MEAN CORPUSCULAR HGB CONC 29 g/dl (33.0-37.0); MEAN PLATELET VOLUME 10.6 fl (7.4-10.4); PLATELET COUNT 153 K/mm3 (130-400); RED BLOOD COUNT 3.84 M/mm3 (4.20-5.60); REDCELL DISTRIBUTION WIDTH-CV 19.2 % (11.5-14.5)
[2019-09-12 09:29] LABS: CALCIUM 8.2 mg/dL (8.4-10.2); CREATININE, serum 1.51 (0.66-1.25); POTASSIUM 3.9 mmol/L (3.4-5.0)
[2019-09-12] MEDS ORDERED: BACTRIM DS 8001 TAB PO (10:08)
[2019-09-12 10:31] LABS: BAND 10 % (0-10); LYMPHOCYTE 11 % (20.0-51.0); METAMYELOCYTE 1 % (0-0); NEUTROPHILS 74 % (42.0-75.2); PLATELET ESTIMATE NORMAL (NORMAL)
--- NOTE | 2019-09-12 11:00 | NUR ---
PATIENT SACRAL WOUND DRESSING TAKEN DOWN AND RE-DRESSED WITH A WET TO DRY DRESSING WITH NORMAL SALINE, 4X4 GAUZE, ABD PADS AND PAPER TAPE. PATIENT TOLERATED WELL. PATIENT DENIES PAIN AT THIS TIME. PATIENT REPOSITIONED IN BED. PATIENT DENIES ANY NEEDS AT THIS TIME.
--- NOTE | 2019-09-12 11:00 | NUR ---
PATIENT SHIFT ASSESSMENT COMPLETE. PATIENT DENIES PAIN. LUNG BASES DIMINISHED. [address] VIA NASAL CANNULA. IV FLUIDS INFUSING TO RIGHT AC IV VIA PUMP. GENERALIZED EDEMA NOTED. UROSTOMY TO RIGHT FLANK DRAINING TO A JIMÉNEZ BAG WITH CLOUDY CYNDI URINE PRESENT IN JIMÉNEZ BAG. COLOSTOMY TO ABDOMINAL LLQ. CALL LIGHT WITHIN REACH. NO NEEDS AT THIS TIME.
[2019-09-12 12:55] VITALS: BP 137/75; PULSE 97; TEMP 97.9
--- NOTE | 2019-09-12 14:06 | NUR ---
The patient is to discharge home today, 09/11 with [facility]. The patient is needing more frequent wound care. BRITNEY communicated this information to Charlette at [facility], she understood and will have a nurse visit the patient's home this afternoon to continue HHS and to educate the patient's father, Devonte on how to assist the patient with wound care. BRITNEY communicated this information to the patient's father, Devonte, he understood. The patient's insurance company will provide transportation home. The trip # is [phone]. BRITNEY faxed discharge orders to [facility]. There are no additional needs at this time.
--- NOTE | 2019-09-12 15:15 | NUR ---
PATIENTS RIGHT AC INT DISCONTINUED PER PENDING DISCHARGE. TIP INTACT. PATIENT TOLERATED WELL. DISCHARGE INSTRUCTIONS REVIEWED WITH PATIENT. QUESTIONS SOUGHT AND ANSWERED. PATIENT PERSONAL BELONGINGS GATHERED. PATIENT TAKEN TO PRIVATE TRANSPORT VEHICLE VIA WHEELCHAIR. PATIENT DISCHARGED.
== END 2019-09-12 15:15 | disposition home health service (06) | DRG 593 ==
LOC: MEDICAL 10:23 → SURG 09-11 10:07
PROVIDERS: Nurse Practitioner Family; ADMIT Student in an Organized Health Care Education/Training Program
DX: L89.892 Pressure ulcer of other site, stage 2 (principal); N39.0 Urinary tract infection, site not specified; Q05.9 Spina bifida, unspecified; N18.9 Chronic kidney disease, unspecified; I12.9 Hypertensive chronic kidney disease with stage 1 through stage 4 chronic kidney disease, or unspecified chronic kidney disease; R73.03 Prediabetes; Z93.2 Ileostomy status; G40.909 Epilepsy, unspecified, not intractable, without status epilepticus; R73.9 Hyperglycemia, unspecified; R53.81 Other malaise; Z88.0 Allergy status to penicillin; Z89.612 Acquired absence of left leg above knee; Z89.611 Acquired absence of right leg above knee; Z99.3 Dependence on wheelchair
CPT/HCPCS: 99222-AI; 99232-AI; 99239; J0696; J1644; J7030

== ENCOUNTER → 2019-11-04 | Outpatient (CLI) | payer MEDICARE, MEDICAID ==
[~2019-11-04] MED LIST changes: +DULCOLAX STOOL100 MG PO; +KLOR-CON M2020 MEQ PO; +LASIX 40MG TABL40 MG PO; +MULTI VITAMINS1 TAB PO; +NATURAL VITAM1000 MG PO; +PHARMASSURE ZIN50 MG PO; +TYLENOL 500MG500 MG PO; +VITAMIN D31000 I1 PO; +ZYRTEC 10MG10 MG PO
== END ==
LOC: COL.RAD 09:35
DX: Q05.9 Spina bifida, unspecified (principal); L89.899 Pressure ulcer of other site, unspecified stage; K46.9 Unspecified abdominal hernia without obstruction or gangrene; N26.1 Atrophy of kidney (terminal); N20.0 Calculus of kidney; J18.1 Lobar pneumonia, unspecified organism; J98.11 Atelectasis; Z98.890 Other specified postprocedural states; R59.0 Localized enlarged lymph nodes; Z89.9 Acquired absence of limb, unspecified

== ENCOUNTER → 2020-04-12 | Outpatient (CLI) | payer MEDICARE, MEDICAID | LOC: ZCOL.LAB 22:23 | DX: N17.9 Acute kidney failure, unspecified (principal) ==

== ENCOUNTER → 2020-04-28 | Outpatient (CLI) | payer MEDICARE, MEDICAID ==
[2020-04-28 15:35] LABS: COLLECTION METHOD CLEAN CATCH
[2020-04-28 15:43] LABS: AMORPHOUS CRYSTAL Present /uL; MUCOUS Present /lpf; PH 7 (5-8); SQUAMOUS EPITHELIAL None Seen /hpf; URINE APPEARANCE Cloudy; URINE BACTERIA Moderate /hpf; URINE BILIRUBIN Negative (NEGATIVE); URINE BLOOD 1+ (NEGATIVE); URINE COLOR Yellow; URINE GLUCOSE Negative (NEGATIVE); URINE KETONE Negative (NEGATIVE); URINE LEUKOCYTE ESTERASE 3+ (NEGATIVE); URINE NITRATE Positive (NEGATIVE); URINE PROTEIN(semi-quant) 2+ (NEGATIVE); URINE RBC >50 /hpf; URINE UROBILINOGEN Negative (NEGATIVE)
[2020-04-28 16:46] LABS: CALCIUM 8.6 mg/dL (8.4-10.2); CREATININE, serum 2.08 (0.66-1.25); POTASSIUM 3.3 mmol/L (3.4-5.0)
== END ==
LOC: ZCOL.LAB 15:33
PROVIDERS: Family Medicine
DX: R34 Anuria and oliguria (principal)